=== PATIENT | female | born 1985 | race Two or more races ===

== ENCOUNTER → 2021-07-03 | Emergency (ER) | payer OTHER ==
[~2021-07-03] VITALS: Ht 165.1 cm; Wt 52.2 kg
== END | disposition home or self-care (01) ==
LOC: ER 16:16
DX: O20.9 Hemorrhage in early pregnancy, unspecified (principal); Z3A.09 9 weeks gestation of pregnancy

== ENCOUNTER 2021-10-28 10:46 | Outpatient (CLI) | payer OTHER | END 2021-10-28 12:37 | disposition home or self-care (01) | LOC: PRENATAL 10:46 | DX: O35.0XX0 Maternal care for (suspected) central nervous system malformation in fetus, not applicable or unspecified (principal); O35.3XX0 Maternal care for (suspected) damage to fetus from viral disease in mother, not applicable or unspecified; O28.1 Abnormal biochemical finding on antenatal screening of mother; O09.529 Supervision of elderly multigravida, unspecified trimester; O34.219 Maternal care for unspecified type scar from previous cesarean delivery; Z3A.26 26 weeks gestation of pregnancy ==